=== PATIENT | male | born 1995 | race Caucasian/White ===

== ENCOUNTER 2018-02-23 19:40 | Emergency (ER) | payer OTHER, BC ==
[~2018-02-23] VITALS: Ht 180.3 cm; Wt 79.4 kg
== END 2018-02-23 20:57 | disposition home or self-care (01) ==
LOC: ER 19:40
DX: S93.402A Sprain of unspecified ligament of left ankle, initial encounter (principal); X58.XXXA Exposure to other specified factors, initial encounter; Y93.67 Activity, basketball
CPT/HCPCS: 29515; 73610; 99283

== ENCOUNTER 2022-09-08 01:35 | Emergency (ER) | payer BC ==
[~2022-09-08] VITALS: Ht 177.8 cm; Wt 79.4 kg
== END 2022-09-08 08:47 | disposition left against medical advice (07) ==
LOC: ER 01:35
DX: T18.128A Food in esophagus causing other injury, initial encounter (principal); X58.XXXA Exposure to other specified factors, initial encounter; Z53.29 Procedure and treatment not carried out because of patient's decision for other reasons
CPT/HCPCS: 94640; 94664; A9270; J1610; J2001

== ENCOUNTER 2023-06-09 10:49 | Emergency (ER) | payer BC ==
[~2023-06-09] VITALS: Ht 177.8 cm; Wt 79.4 kg
[2023-06-09 10:52] VITALS: BP 141/92
== END 2023-06-09 11:55 | disposition home or self-care (01) ==
LOC: ER 10:49
DX: K22.2 Esophageal obstruction (principal)
CPT/HCPCS: 99283; A9270

== ENCOUNTER 2024-06-09 08:43 | Emergency (ER) | payer BC ==
[~2024-06-09] VITALS: Ht 177.8 cm; Wt 80.3 kg
[2024-06-09 09:22] VITALS: BP 121/85
[2024-06-09] MEDS ORDERED: Ondansetron HCl 2 MG / ML 2ML Vial IV PRN (09:30)
[2024-06-09 09:45] LABS: BASOPHILS ABSOLUTE AUTO 0.02 K/mm3 (0.00-0.23); BASOPHILS PERCENT AUTO 0 % (0-2); EOSINOPHILS ABSOLUTE AUTO 0.03 K/mm3 (0.00-0.68); EOSINOPHILS PERCENT AUTO 0 % (0-6); Hematocrit 49.6 % (37.0-53.0); IMMATURE GRAN ABSOLUTE AUTO 0.03 K/mm3 (0.00-0.10); IMMATURE GRAN PERCENT AUTO 0 % (0-1); LYMPHOCYTES ABSOLUTE AUTO 0.49 K/mm3 (0.84-5.20); LYMPHOCYTES PERCENT AUTO 6 % (21-46); MONOCYTES ABSOLUTE AUTO 0.46 K/mm3 (0.16-1.47); MONOCYTES PERCENT AUTO 6 % (4-13); Mean Corpuscular HGB 30.1 pg (26.0-34.0); Mean Corpuscular HGB Conc 34.3 g/dL (31.5-36.5); Mean Corpuscular Volume 88 fL (80-100); Mean Platelet Volume 9.9 fL (9.1-12.4); NEUTROPHILS ABSOLUTE AUTO 6.97 K/mm3 (1.96-9.15); NEUTROPHILS PERCENT AUTO 87 % (41-73); Platelet Count 195 K/mm3 (150-400); RDW Coefficient Variation 12.4 % (11.7-14.2); RDW Standard Deviation 40.2 fL (35.1-46.3); Red Blood Cell Count 5.65 M/mm3 (4.30-5.90)
[2024-06-09 10:11] LABS: Albumin, Blood 3.7 g/dL (3.4-5.0); Albumin/Globulin Ratio 0.9 (0.8-1.8); Bilirubin, Total 0.9 mg/dL (0.1-1.0); Bun/Creatinine Ratio 19.2 (12.0-20.0); Calcium, Blood 9.1 mg/dL (8.5-10.1); Creatinine, Blood 0.94 mg/dL (0.60-1.20); Potassium, Blood 3.1 mmol/L (3.5-5.5); Total Protein, Blood 7.7 g/dL (6.4-8.2)
[2024-06-09] MEDS ORDERED: Glucagon 1 MG/KIT VIAL IV ONE (10:15)
[2024-06-09] MEDS ORDERED: Mag Hydrox/AL Hydrox/Simeth 30 ML UDC PO ONE (10:35)
[2024-06-09] MEDS ORDERED: Lidocaine 2% Viscous Soln 15 ML UDC PO ONE (10:35)
[2024-06-09] MEDS ORDERED: Atropine/Scopalam/Hyoscam/PB 5 ML UDC PO ONE (10:35)
== END 2024-06-09 11:27 | disposition home or self-care (01) ==
LOC: ER 08:43
PROVIDERS: Student in an Organized Health Care Education/Training Program
DX: T18.128A Food in esophagus causing other injury, initial encounter (principal)
CPT/HCPCS: 80053; 83690; 85025; 99283; A9270; J1610